=== PATIENT | male | born 1995 | race Caucasian/White ===

== ENCOUNTER 2018-03-03 20:36 | Emergency (ER) | payer BC ==
[~2018-03-03] VITALS: Ht 177.8 cm; Wt 83.9 kg
[~2018-03-03 20:36] MED LIST: ALBU90OI INH; CODGUAEL PO; CRUTCH USE; CRUTCH4 USE; DOXY100 PO; HYDACE5 PO; IBUP600 PO; IBUP800 PO; NAPR375 PO; NAPR500 PO; PRED10 PO; RXOXYACE PO; TRAM50 PO
[2018-03-03] MEDS ORDERED: IBUP800 PO (21:46)
== END 2018-03-03 21:57 | disposition home or self-care (01) ==
LOC: ER 20:36
DX: S02.2XXA Fracture of nasal bones, initial encounter for closed fracture (principal); Z88.0 Allergy status to penicillin; W51.XXXA Accidental striking against or bumped into by another person, initial encounter; Y93.67 Activity, basketball
CPT/HCPCS: 70160; J1885